=== PATIENT | male | born 1995 | race Caucasian/White ===

== ENCOUNTER 2018-01-23 19:16 | Emergency (ER) | payer OTHER | END 2018-01-23 21:27 | disposition home or self-care (01) | LOC: FTE 19:16 | DX: L24.9 Irritant contact dermatitis, unspecified cause (principal); I10 Essential (primary) hypertension; J45.909 Unspecified asthma, uncomplicated | CPT/HCPCS: 99283; Z7502 ==

== ENCOUNTER 2018-12-07 07:01 | Emergency (ER) | payer OTHER | END 2018-12-07 08:24 | disposition home or self-care (01) | LOC: FTE 08:24 | DX: R21 Rash and other nonspecific skin eruption (principal); J00 Acute nasopharyngitis [common cold]; J45.909 Unspecified asthma, uncomplicated; I10 Essential (primary) hypertension | CPT/HCPCS: 99283; Z7502 ==